=== PATIENT | female | born 1975 ===

== ENCOUNTER 2025-09-09 05:21 | Day surgery (SDC) | payer OTHER ==
[2025-09-05 08:45] LABS: BASO % 1.0 % (0.1-1.2); EOS # 0.22 (0.04-0.54); EOS % 3.5 % (0.7-7.0); LYMPH # 2.21 (1.18-3.74); LYMPH % 35.0 % (19.3-53.1); MEAN PLATELET VOLUME 9.90 fl (9.4-12.4); MONO # 0.36 (0.24-0.82); MONO % 5.7 % (4.7-12.5); NEUT # 3.44 (1.56-6.13); NEUT % 54.5 % (34.0-71.1); RED CELL DISTRIBUTION WIDTH 12.2 % (11.6-14.4)
[2025-09-05 09:03] LABS: INR 0.99; URINE APPEARANCE Clear; URINE BILIRRUBIN Negative (NEGATIVE); URINE BLOOD Trace; URINE COLOR Yellow; URINE GLUCOSE Negative (NEGATIVE); URINE KETONE Negative (NEGATIVE); URINE LEUKOCYTE Negative; URINE NITRATE Negative; URINE PROTEIN Negative (NEGATIVE); URINE UROBILINOGEN 0.2 E.U./dl
[2025-09-05 09:04] LABS: URINE BACTERIA 1795.8 uL (0.0-1933); URINE EPITHELIAL CELLS 17.6 uL (0.0-38.8); URINE RBC 30.8 uL (0.0-20.8); URINE WBC 7.5 uL (0.0-23.2)
[2025-09-05 09:09] LABS: URINE CAST 0.00 uL (0.0-1.40)
[2025-09-05 09:13] LABS: COL EPI 84 SECONDS (82-175)
[2025-09-05 09:14] LABS: ALT/SGPT 33.0 U/L (12-78); AST/SGOT 15.0 U/L (15-37); BILIRUBIN TOTAL 0.59 mg/dL (0.3-1.2); BUN CREA RATIO 28.0 (7.0-25.0); CREATININE SERUM 0.79 mg/dL (0.55-1.02); GFR 77.03; GLOBULINA 3.7 G/DL (2.4-3.5); GLUCOSE FASTING 104.0 mg/dL (65-100); OSMOLALITY SERUM 287.0 MOSM/KG (275-295)
[~2025-09-09 05:21] MED LIST: CALCIUM600 MG PO; CARDURA1 MG; COZAAR50 MG PO; DILTIAZEM HCL120 MG; INDERAL LA80 MG PO; MIRABEGRON ER50 MG PO; SYNTHROID100 MCG PO; VITAMIN D310000 UNIT PO
[2025-09-09] MEDS ORDERED: CEFAZOLIN SODIUM 1,000 MG VIAL ONE (06:24)
[2025-09-09] MEDS ORDERED: METHYLPREDNISOLONE ACETATE 80 MG/ML VIAL ONE (07:07)
[2025-09-09] MEDS ORDERED: EPINEPHRINE HCL/PF 1 MG/ML AMPUL ONE (07:07)
[2025-09-09] MEDS ORDERED: VANCOMYCIN HCL 1,000 MG VIAL ONE (07:08)
[2025-09-09] MEDS ORDERED: BUPIVACAINE HCL/MPF 0.5% 30ML VIAL ONE (07:08)
[2025-09-09] MEDS ORDERED: LIDOCAINE HCL 1%/EPINEPHRINE 20ML VIAL IJ ONE (07:08)
== END 2025-09-09 14:35 | disposition home or self-care (01) ==
LOC: CIR.AMB 05:21
PROVIDERS: ATTEND Orthopaedic Surgery
DX: M23.232 Derangement of other medial meniscus due to old tear or injury, left knee (principal); M65.862 Other synovitis and tenosynovitis, left lower leg